=== PATIENT | female | born 1945 | race Caucasian/White ===

== ENCOUNTER → 2018-02-18 | Outpatient (CLI) | payer MEDICARE, BC ==
[2018-02-18 10:44] VITALS: BP 121/57; PULSE 74; RESP 12; TEMP 97; BMI 24.1
--- NOTE | 2018-02-18 11:24 | P.GSHP ---
History of Present Illness H&P Date: 02/18/18 Chief Complaint: right mastectomy 2002 The patient is a 73 year old white female status post left breast mastectomy. She initially underwent chemotherapy, she then had a mastectomy, and then she had 32 radiation therapy treatments. She was treated by DR. Dean, the tumor size was > 5 CM, +2nodes, no metastasis. She is unsure if it was hormone receptor positive. Her surgery was at [facility] in [place]. At this time the patient does not have any complaints related to her left breast. She has no evidence of any recurrence in her right chest wall. Family History: 1. sister: non-hodgkins lymphoma Hormonal history: menarche: 11 : 4, 4 children, breast fed: no, first born at 21 mneopause: 49 BCP:< 1 year, developed a swelling on her leg Hormones: none past Surgical History: 1. right mastectomy 2. gallbladder Medical Hsitory: 1. asthma Social History: smoke: 1 year 2 cigarretes/day/stopped in alcohol: none drugs: none - Constitutional Comment: BMI: 24.1 Constitutional: Reports sweats - EENT Comment: cataract surgery bilateral Eyes: denies blurred vision, denies pain Ears: bilateral: decreased hearing, tinnitus Ears, nose, mouth and throat: Denies headache, Denies sore throat - Breasts Breasts: bilateral: as per HPI - Cardiovascular Cardiovascular: Denies chest pain, Denies shortness of breath - Respiratory Comment: asthma Respiratory: Denies cough, Denies 7 - Gastrointestinal Gastrointestinal: Denies abdominal pain, Denies diarrhea, Denies nausea, Denies vomiting - Genitourinary (Female) Genitourinary: Denies dysuria, Denies hematuria - Menstruation Menstruation: Reports postmenopausal - Musculoskeletal Comment: arthritis/ muscle aches - Integumentary Integumentary: Reports pruritus, Denies rash - Neurological Neurological: Denies numbness, Denies weakness - Psychiatric Psychiatric: Denies anxiety, Denies depression - Endocrine Endocrine: Denies fatigue, Denies weight change - Hematologic/Lymphatic Comment: none - Allergic/Immunologic Allergic/Immunologic: Reports seasonal allergies Past Medical History History of Any Multi-Drug Resistant Organisms: None Reported Smoking Status: Never smoker Medications and Allergies Home Medications Medication Instructions Recorded Confirmed Type Fluticasone Propionate [Flovent 1 puff INHALATION 10/19/18 History Hfa 44 mcg] Montelukast Sodium [Singulair] 10 mg PO HS 02/18/18 02/18/18 History Surgical - Exam Vital Signs Temp Pulse Resp BP 97 F L 74 12 121/57 02/18/18 10:40 02/18/18 10:40 02/18/18 10:40 02/18/18 10:40 BMI 24.1 - General well developed, well nourished, no distress - Eyes normal ocular movement - ENT normal pinna, normal nares, no congestion - Neck no masses, trachea midline - Respiratory normal respiratory effort, clear to auscultation - Cardiovascular Rhythm: regular Heart Sounds: normal: S1, S2 - Abdomen Abdomen: soft - Integumentary no rash - Neurologic no disoriented, no combative - Musculoskeletal normal gait, normal posture - Psychiatric oriented to time, oriented to person, oriented to place, speech is normal, memory intact breast exam: Right chest wall: Multiple positional exam no evidence of recurrent disease Right axilla: No adenopathy of concern Left breast: Multi-positional exam no dominant masses or nodules of concern Left axilla: No adenopathy of concern Assessment and Plan Assessment: Impression: 1. Status post right breast mastectomy 2002, no evidence of recurrent breast cancer 2. Asthma 3. Fibrocystic changes left breast Plan: 1. Left breast mammogram 2. Depending on results of left breast mammogram follow-up in 1 year line 3. Medical management of medical problems CC: Dr. Astorga
== END | disposition home or self-care (01) ==
LOC: WWCWWP 10:18
PROVIDERS: ATTEND Surgery
DX: Z53.9 Procedure and treatment not carried out, unspecified reason (principal)

== ENCOUNTER → 2018-03-04 | Outpatient (CLI) | payer MEDICARE, BC ==
--- NOTE | 2018-03-04 13:53 | MM ---
Reason for exam: additional evaluation requested from prior study. History: Patient is postmenopausal and has history of breast cancer at age 58. Mastectomy of the right breast, 2002. Chemotherapy, 2002. Radiation therapy of the right breast, 2002. Took antineoplastic for 5 years beginning at age 58. Physical Findings: Nurse did not find any significant physical abnormalities on exam. MG 3D Diag Mammo W/Cad LT CC and MLO view(s) were taken of the left breast. The breast tissue is heterogeneously dense. This may lower the sensitivity of mammography. No significant new findings when compared with previous films. These results were verbally communicated with the patient and result sheet given to the patient on 03/04/18. ASSESSMENT: Benign, BI-RAD 2 RECOMMENDATION: Follow-up diagnostic mammogram of the left breast in 1 year.
== END | disposition home or self-care (01) ==
LOC: RADMAMWWP 12:46
PROVIDERS: ATTEND Surgery
DX: R92.8 Other abnormal and inconclusive findings on diagnostic imaging of breast (principal)
CPT/HCPCS: 77065; G0279; 77061

== ENCOUNTER → 2018-03-17 | Outpatient (CLI) | payer MEDICARE, BC ==
[2018-03-17 14:29] VITALS: BP 131/61; PULSE 78; RESP 18; TEMP 97.8; BMI 22.6
--- NOTE | 2018-03-17 14:56 | P.GSHP ---
History of Present Illness H&P Date: 03/17/18 Chief Complaint: right breast cancer Luisa is a 73 year old white female who was diagnosed with right breast cancer in 2002. She had neoadjuvant chemotherapy followed by a mastectomy and then radiation therapy. She believes that she also had antihormonal therapy. She has not had any problems in her left breast. She had a mammogram performed which was benign BIRADS 2. The patient at this time denies any masses or nodules in her breast. She has no nipple discharge or skin changes for which she is concerned. Family History: 1. mother: ? colon cancer 2. father: lung (smoker) 3. sister: non-hodgkins lymphoma Hormonal Hisotry: menarche: 11 : 4, 4 children, breast fed: no, first at age 23 menopause: 49 BCP: 3 weeks and developed a DVT hormones: none Past surgical history: 1. Right mastectomy 2. Cholecystectomy Medical history: 1. Asthma Social history: Smoke: Negative Alcohol: Negative Drugs: Negative - Constitutional Comment: BMI 22.6 Constitutional: Denies chills, Denies fever - EENT Eyes: denies blurred vision, denies pain Ears: bilateral: decreased hearing, tinnitus Ears, nose, mouth and throat: Denies headache, Denies sore throat - Breasts Breasts: bilateral: as per HPI - Cardiovascular Cardiovascular: Denies chest pain, Denies shortness of breath - Respiratory Comment: asthma - Gastrointestinal Gastrointestinal: Denies abdominal pain, Denies diarrhea, Denies nausea, Denies vomiting - Genitourinary (Female) Genitourinary: Denies dysuria, Denies hematuria - Menstruation Menstruation: Reports postmenopausal - Musculoskeletal Comment: arthritis - Integumentary Integumentary: Denies pruritus, Denies rash - Neurological Neurological: Denies numbness, Denies weakness - Psychiatric Psychiatric: Denies anxiety, Denies depression - Endocrine Endocrine: Denies fatigue, Denies weight change - Hematologic/Lymphatic Comment: none - Allergic/Immunologic Comment: mold Allergic/Immunologic: Reports seasonal allergies Past Medical History Past Medical History: Asthma History of Any Multi-Drug Resistant Organisms: None Reported Past Surgical History: Cholecystectomy Past Anesthesia/Blood Transfusion Reactions: No Reported Reaction Past Psychological History: No Psychological Hx Reported Smoking Status: Never smoker Past Alcohol Use History: None Reported - Past Family History Mother Additional Family Medical History / Comment(s): bowel obstruction Father Family Medical History: Cancer Additional Family Medical History / Comment(s): lung cancer Medications and Allergies Home Medications Medication Instructions Recorded Confirmed Type Fluticasone Propionate [Flovent 1 puff INHALATION Q12HR 02/18/18 03/17/18 History Hfa 44 mcg] Montelukast Sodium [Singulair] 10 mg PO HS 02/18/18 03/17/18 History Allergies Allergy/AdvReac Type Severity Reaction Status Date / Time povidone-iodine Allergy Rash/Hives Verified 03/17/18 14:31 [From Betadine] soap [From Betadine] Allergy Rash/Hives Verified 03/17/18 14:31 Surgical - Exam Vital Signs Temp Pulse Resp BP Pulse Ox 97.8 F 78 18 131/61 97 03/17/18 14:19 03/17/18 14:19 03/17/18 14:19 03/17/18 14:19 03/17/18 14:19 BMI 22.6 - General well developed, well nourished, no distress - Eyes normal ocular movement, no icteric - ENT no hearing loss, no congestion - Neck no masses, trachea midline - Respiratory normal respiratory effort, clear to auscultation - Cardiovascular Rhythm: regular Heart Sounds: normal: S1, S2 - Abdomen Abdomen: soft, non tender, no guarding, no rigid, no rebound - Integumentary normal turger - Neurologic no disoriented, no combative - Musculoskeletal normal gait - Psychiatric oriented to time, oriented to person, oriented to place, speech is normal, memory intact breast exam: right breast: Status post mastectomy, no recurrence and chest wall Right axilla: No adenopathy of concern Left breast: Multi-positional exam increased fullness in the upper outer quadrant area without a discrete mass Left axilla: No adenopathy of concern Results Mammogram from results reviewed Assessment and Plan Assessment: Impression: 1. Patient status post right breast mastectomy 2002 2. Left breast fibrocystic changes some increased fullness in the upper outer quadrant 3. No evidence of recurrent cancer Plan: 1. FNA of area of increased fullness in the left breast and upper outer quadrant 2. If results of FNA are non-worrisome repeat physician exam in 1 year with repeat left breast mammogram at that time CC: Dr. Pope
--- NOTE | 2018-03-17 15:02 | P.OP ---
Date of Procedure: 03/17/18 Preoperative Diagnosis: fullness left bresat UOQ Postoperative Diagnosis: dense tissue UOQ left breast Anesthesia: none Pathology: other (FNA specimen) Condition: stable Disposition: same day Indications for Procedure: fullness UOQ left breast Description of Procedure: The area of concern was prepped using alcohol. A 21 gauge needle on a 5 cc syringe was used to obtain the specimen. Negative suction is applied to the syringe and the needle was inserted several times into the area of concern. The specimen is handed off. Specimen is prepared and sent to pathology. The patient tolerated the procedure in stable condition.
== END | disposition home or self-care (01) ==
LOC: WWCWWP 14:14
PROVIDERS: ATTEND Surgery
DX: N64.9 Disorder of breast, unspecified (principal)
CPT/HCPCS: 88173

== ENCOUNTER → 2019-03-23 | Outpatient (CLI) | payer MEDICARE, BC ==
[2019-03-23 10:18] VITALS: BP 116/75; PULSE 70; RESP 18; TEMP 98.2; BMI 22.2
--- NOTE | 2019-03-23 10:32 | P.PN ---
Subjective Progress Note Date: 03/23/19 Principal diagnosis: personal history of T4 right breast cancer Luisa is a 73 year old white female who was diagnosed with right breast cancer in 2002. She had neoadjuvant chemotherapy followed by a mastectomy and then radiation therapy. She believes that she also had antihormonal therapy. She has not had any problems in her left breast. She had a mammogram performed 03-04-18 which was benign BIRADS 2. The patient at this time denies any masses or nodules in her breast. She has no nipple discharge or skin changes for which she is concerned. She is due for a left breast mammogram at tis time. Family History: 1. mother: ? colon cancer 2. father: lung (smoker) 3. sister: non-hodgkins lymphoma 4. patient: right breast cancer Hormonal Hisotry: menarche: 11 : 4, 4 children, breast fed: no, first at age 23 menopause: 49 BCP: 3 weeks and developed a DVT hormones: none Past surgical history: 1. Right mastectomy 2. Cholecystectomy Medical history: 1. Asthma Social history: Smoke: Negative Alcohol: Negative Drugs: Negative - Constitutional Comment: BMI 22.6 Constitutional: Denies chills, Denies fever - EENT Eyes: denies blurred vision, denies pain Ears: bilateral: decreased hearing, tinnitus Ears, nose, mouth and throat: Denies headache, Denies sore throat - Breasts Breasts: bilateral: as per HPI - Cardiovascular Cardiovascular: Denies chest pain, Denies shortness of breath - Respiratory Comment: asthma - Gastrointestinal Gastrointestinal: Denies abdominal pain, Denies diarrhea, Denies nausea, Denies vomiting - Genitourinary (Female) Genitourinary: Denies dysuria, Denies hematuria - Menstruation Menstruation: Reports postmenopausal - Musculoskeletal Comment: arthritis - Integumentary Integumentary: Denies pruritus, Denies rash - Neurological Neurological: Denies numbness, Denies weakness - Psychiatric Psychiatric: Denies anxiety, Denies depression - Endocrine Endocrine: Denies fatigue, Denies weight change - Hematologic/Lymphatic Comment: none - Allergic/Immunologic Comment: mold Allergic/Immunologic: Reports seasonal allergies Past Medical History Past Medical History: Asthma History of Any Multi-Drug Resistant Organisms: None Reported Past Surgical History: Cholecystectomy Past Anesthesia/Blood Transfusion Reactions: No Reported Reaction Past Psychological History: No Psychological Hx Reported Smoking Status: Never smoker Past Alcohol Use History: None Reported - Past Family History Mother Additional Family Medical History / Comment(s): bowel obstruction Father Family Medical History: Cancer Additional Family Medical History / Comment(s): lung cancer Objective - Vital Signs Vital signs: Vital Signs Temp 98.2 F 03/23/19 10:14 Pulse 70 03/23/19 10:14 Resp 18 03/23/19 10:14 BP 116/75 03/23/19 10:14 Pulse Ox 98 03/23/19 10:14 - Exam BMI 22.3 - Constitutional General appearance: Present: average body habitus - EENT Eyes: Present: EOMI ENT: Present: hearing grossly normal - Neck Neck: Present: normal ROM - Respiratory Respiratory: bilateral: CTA - Cardiovascular Rhythm: regular Heart sounds: normal: S1, S2 - Gastrointestinal Gastrointestinal Comment(s): no guarding or rebound, normal bowel sounds, no organomegaly General gastrointestinal: Present: soft - Integumentary Integumentary: Present: normal turgor - Musculoskeletal Musculoskeletal: Present: gait normal - Psychiatric Psychiatric: Present: A&O x's 3, appropriate affect, intact judgment & insight - Additional findings Additional findings: breast exam: right chest wall: Incision clean and dry, no evidence of any recurrent cancer Right axilla: No adenopathy of concern Left breast: Multi-positional exam fibrocystic changes, no dominant masses or nodules of concern Left axilla: No adenopathy of concern Assessment and Plan Assessment: impression: 1. personal history of right breast cancer, 2002; radical mastectomy 2. Neoadjuvant chemotherapy 3. Patient had hormonal therapy was not taking this any longer 4. Patient status post radiation therapy/ 32 treatments after the surgery 5. benign left breast mammogram 6. Plan: 1. Repeat left breast mammogram in 1 year 2. Follow-up here in 1 year 3. Medical management of asthma CC: Dr. Zana Fowler
--- NOTE | 2019-03-23 12:02 | MM ---
Reason for exam: additional evaluation requested from prior study. Last mammogram was performed 1 year and 1 month ago. History: Patient is postmenopausal and has history of breast cancer at age 58. Mastectomy of the right breast, 2002. Chemotherapy, 2002. Radiation therapy of the right breast, 2002. Took antineoplastic for 5 years beginning at age 58. Physical Findings: Nurse did not find any significant physical abnormalities on exam. MG 3D Diag Mammo W/Cad LT CC, MLO, XCCL, LM, and spot compression XCCM view(s) were taken of the left breast. Prior study comparison: March 04, 2018, left breast MG 3d diag mammo w/cad LT. The breast tissue is extremely dense which could obscure a lesion on mammography. There is no discrete abnormality. No significant new findings when compared with previous films. These results were verbally communicated with the patient and result sheet given to the patient on 03/23/19. ASSESSMENT: Negative, BI-RAD 1 RECOMMENDATION: Follow-up diagnostic mammogram of the left breast in 1 year.
== END | disposition home or self-care (01) ==
LOC: WWCWWP 09:39
PROVIDERS: ATTEND Surgery
DX: Z08 Encounter for follow-up examination after completed treatment for malignant neoplasm (principal); Z85.3 Personal history of malignant neoplasm of breast
CPT/HCPCS: 77065; G0279; 77061

== ENCOUNTER → 2020-08-21 | Outpatient (CLI) | payer MEDICARE, BC ==
--- NOTE | 2020-08-21 11:29 | MM ---
Reason for exam: additional evaluation requested from prior study. Last mammogram was performed 1 year and 5 months ago. History: Patient is postmenopausal and has history of breast cancer at age 58. Mastectomy of the right breast, 2002. Chemotherapy, 2002. Radiation therapy of the right breast, 2002. Took antineoplastic for 5 years beginning at age 58. Physical Findings: Nurse did not find any significant physical abnormalities on exam. MG 3D Diag Mammo W/Cad LT CC and MLO view(s) were taken of the left breast. Prior study comparison: March 23, 2019, left breast MG 3d diag mammo w/cad LT. March 04, 2018, left breast MG 3d diag mammo w/cad LT. The breast tissue is heterogeneously dense. This may lower the sensitivity of mammography. Stable vascular calcifications. There is no discrete abnormality. No significant new findings when compared with previous films. These results were verbally communicated with the patient and result sheet given to the patient on 08/21/20. ASSESSMENT: Benign, BI-RAD 2 RECOMMENDATION: Follow-up diagnostic mammogram of the left breast in 1 year.
== END | disposition home or self-care (01) ==
LOC: RADMAMWWP 10:46
PROVIDERS: ATTEND Surgery
DX: Z78.0 Asymptomatic menopausal state (principal); Z85.3 Personal history of malignant neoplasm of breast
CPT/HCPCS: 77065; G0279; 77061

== ENCOUNTER → 2020-08-29 | Outpatient (CLI) | payer MEDICARE, BC ==
[2020-08-29 11:09] VITALS: BP 134/71; PULSE 72; RESP 18; TEMP 97.9
--- NOTE | 2020-08-29 11:30 | P.PN ---
Subjective Progress Note Date: 08/29/20 Principal diagnosis: right breast cancer 2002, surgery done [facility] Luisa is a 75 year old white female who was diagnosed with right breast cancer in 2002. She had neoadjuvant chemotherapy followed by a mastectomy and then radiation therapy. She believes that she also had antihormonal therapy. She has not had any problems in her left breast. She is not complaining of any lumps masses nodules or areas of concern. She is not complaining of any nipple discharge of concern. She had a mammogram performed on 08-21-20 which was benign BIRADS 2. The patient at this time denies any masses or nodules in her breast. She has no nipple discharge or skin changes for which she is concerned. Family History: 1. mother: ? colon cancer 2. father: lung (smoker) 3. sister: non-hodgkins lymphoma 4. patient: right breast cancer Hormonal Hisotry: menarche: 11 : 4, 4 children, breast fed: no, first at age 23 menopause: 49 BCP: 3 weeks and developed a DVT hormones: none Past surgical history: 1. Right mastectomy 2. Cholecystectomy Medical history: 1. Asthma Social history: Smoke: Negative Alcohol: Negative Drugs: Negative Review of systems: HEENT: tinnitus bilateral Lungs: Negative heart: Negative GI: Negative : Negative Hematologic: none Psychologic: Negative Neurologic: Negative Objective - Vital Signs Vital signs: Vital Signs Temp 97.9 F 08/29/20 11:04 Pulse 72 08/29/20 11:04 Resp 18 08/29/20 11:04 BP 134/71 08/29/20 11:04 Pulse Ox 97 08/29/20 11:04 Intake & Output 08/28/20 08/29/20 08/29/20 18:59 06:59 18:59 Weight 58.967 kg - Constitutional General appearance: Present: average body habitus, cooperative - EENT Eyes: Present: EOMI ENT: Present: hearing grossly normal - Neck Neck: Present: normal ROM - Respiratory Respiratory: bilateral: CTA - Cardiovascular Rhythm: regular Heart sounds: normal: S1, S2 - Integumentary Integumentary: Present: normal turgor - Musculoskeletal Musculoskeletal: Present: gait normal - Psychiatric Psychiatric: Present: A&O x's 3, appropriate affect, intact judgment & insight - Additional findings Additional findings: breast exam: BRA: 36A inspection: right chest wall no evidence of recurrence, left breast grade 3 ptosis palpation: right chest wall: No evidence of recurrent disease Right axilla: No adenopathy of concern Left breast: Multiple positional exam no dominant masses or nodules of concern Left axilla: No adenopathy of concern Assessment and Plan Assessment: Impression: 1. No evidence of recurrent right breast cancer/diagnosed in 2003 question stage 2. Fibrocystic changes left breast no dominant masses or nodules of concern 3. Recent left breast mammogram BIRADS 2 4. Asthma Plan: 1. Repeat left breast mammogram in 1 year with physician exam at that time
== END ==
LOC: WWCWWP 10:20
PROVIDERS: ATTEND Surgery
DX: N60.12 Diffuse cystic mastopathy of left breast (principal); J45.909 Unspecified asthma, uncomplicated; Z80.3 Family history of malignant neoplasm of breast; Z90.11 Acquired absence of right breast and nipple

== ENCOUNTER → 2021-08-25 | Outpatient (CLI) | payer MEDICARE, BC ==
--- NOTE | 2021-08-25 14:16 | MM ---
Reason for exam: screening (asymptomatic). Last mammogram was performed 1 year ago. History: Patient is postmenopausal and has history of breast cancer at age 58. Mastectomy of the right breast, 2002. Chemotherapy, 2002. Radiation therapy of the right breast, 2002. Took antineoplastic for 5 years beginning at age 58. Physical Findings: A clinical breast exam by your physician is recommended on an annual basis and results should be correlated with mammographic findings. MG 3D Diag Mammo W/Cad LT CC, MLO, and XCCL view(s) were taken of the left breast. Prior study comparison: August 21, 2020, left breast MG 3d diag mammo w/cad LT. March 23, 2019, left breast MG 3d diag mammo w/cad LT. March 04, 2018, left breast MG 3d diag mammo w/cad LT. No significant new findings when compared with previous films. Results were given to the patient verbally at the time of the exam. ASSESSMENT: Benign, BI-RAD 2 RECOMMENDATION: Routine screening mammogram of the left breast in 1 year.
== END | disposition home or self-care (01) ==
LOC: RADMAMWWP 12:08
PROVIDERS: ATTEND Surgery
DX: R92.8 Other abnormal and inconclusive findings on diagnostic imaging of breast (principal); Z85.3 Personal history of malignant neoplasm of breast; Z78.0 Asymptomatic menopausal state; Z92.3 Personal history of irradiation; Z90.11 Acquired absence of right breast and nipple
CPT/HCPCS: 77065; G0279; 77061

== ENCOUNTER → 2021-08-28 | Outpatient (CLI) | payer MEDICARE, BC ==
[2021-08-28 11:48] VITALS: BP 127/64; PULSE 98; RESP 17; TEMP 97.5
--- NOTE | 2021-08-28 12:32 | P.PN ---
Subjective Progress Note Date: 08/28/21 Principal diagnosis: right breast cancer 2002 right breast cancer 2002, surgery done [facility] Luisa is a 76 year old white female who was diagnosed with right breast cancer in 2002. She had neoadjuvant chemotherapy followed by a mastectomy and then radiation therapy. She believes that she also had antihormonal therapy. She has not had any problems in her left breast. She is not complaining of any lumps masses nodules or areas of concern. She is not complaining of any nipple discharge of concern. She had a mammogram performed on 08-25-21 which was benign BIRADS 2. The patient at this time denies any masses or nodules in her breast. She has no nipple discharge or skin changes for which she is concerned. Family History: 1. mother: ? colon cancer 2. father: lung (smoker) 3. sister: non-hodgkins lymphoma 4. patient: right breast cancer Hormonal Hisotry: menarche: 11 : 4, 4 children, breast fed: no, first at age 23 menopause: 49 BCP: 3 weeks and developed a DVT hormones: none Past surgical history: 1. Right mastectomy 2. Cholecystectomy Medical history: 1. Asthma Social history: Smoke: Negative Alcohol: Negative Drugs: Negative Review of systems: HEENT: tinnitus bilateral Lungs: Negative heart: Negative GI: Negative : Negative Hematologic: none Psychologic: Negative Neurologic: Negative Objective - Vital Signs Vital signs: Vital Signs Temp 97.5 F L 08/28/21 11:45 Pulse 98 08/28/21 11:45 Resp 17 08/28/21 11:45 BP 127/64 08/28/21 11:45 Pulse Ox 99 08/28/21 11:45 Intake & Output 08/27/21 08/28/21 08/28/21 18:59 06:59 18:59 Weight 56.245 kg - Exam BMI: 20 - Constitutional General appearance: Present: cooperative - EENT Eyes: Present: EOMI ENT: Present: hearing grossly normal - Neck Neck: Present: normal ROM - Respiratory Respiratory: bilateral: CTA - Cardiovascular Rhythm: regular Heart sounds: normal: S1, S2 - Gastrointestinal General gastrointestinal: Present: soft - Integumentary Integumentary: Present: normal turgor - Musculoskeletal Musculoskeletal: Present: gait normal - Psychiatric Psychiatric: Present: A&O x's 3, appropriate affect, intact judgment & insight - Additional findings Additional findings: Breast Exam: BRA: 36B inspection: Right mastectomy, left breast grade 3 ptosis Palpation: Right chest wall: No evidence of recurrent disease Right axilla: No adenopathy of concern Left breast: Multiple positional exam no dominant masses or nodules of concern Left axilla: No adenopathy of concern Assessment and Plan Assessment: Impression: No evident recurrent right breast cancer Left breast no lesions warranting biopsy recent left breast mammogram benign BIRADS 2 done on [id number] Plan: Repeat left breast mammogram in 1 year physician exam at that time
== END ==
LOC: WWCWWP 11:26
PROVIDERS: ATTEND Surgery
DX: Z08 Encounter for follow-up examination after completed treatment for malignant neoplasm (principal); Z85.3 Personal history of malignant neoplasm of breast; J45.909 Unspecified asthma, uncomplicated; Z90.11 Acquired absence of right breast and nipple; Z88.8 Allergy status to other drugs, medicaments and biological substances; Z91.041 Radiographic dye allergy status

== ENCOUNTER → 2022-09-15 | Outpatient (CLI) | payer MEDICARE, BC ==
--- NOTE | 2022-09-16 08:59 | MM ---
Reason for Exam: Screening (asymptomatic). Last mammogram was performed 1 year(s) and 1 month(s) ago. Patient History: Menarche at age 11. First Full-Term at age 21. Postmenopausal. Breast cancer, right, age 58. 2002, Mastectomy on the Right side. 2002, Chemotherapy. 2002, Radiation Therapy on the right side. Prior Study Comparison: 03/04/2018 Left Diagnostic Mammogram, [facility]. 03/23/2019 Left Diagnostic Mammogram, [facility]. 08/21/2020 Left Diagnostic Mammogram, [facility]. 08/25/2021 Left Diagnostic Mammogram, [facility]. Tissue Density: Left: The breast tissue is heterogeneously dense. This may lower the sensitivity of mammography. Findings: Analyzed By CAD. Significantly limited examination due to patient position. Asymmetry demonstrated within the central left breast at middle depth only on the CC view. Benign vascular calcifications are noted. No suspicious group of microcalcifications within left breast. Overall Assessment: Incomplete: need additional imaging evaluation, BI-RAD 0 Management: Diagnostic Mammogram of the left breast. A clinical breast exam by your physician is recommended on an annual basis and results should be correlated with mammographic findings. [facility] will attempt to contact patient to return for supplemental views and ultrasound if indicated. Electronically signed and approved by: Xander Hewitt D.O.
== END | disposition home or self-care (01) ==
LOC: RADMAMWWP 12:02
PROVIDERS: ATTEND Surgery
DX: Z12.31 Encounter for screening mammogram for malignant neoplasm of breast (principal); Z78.0 Asymptomatic menopausal state
CPT/HCPCS: 77067

== ENCOUNTER → 2022-09-17 | Outpatient (CLI) | payer MEDICARE, BC ==
--- NOTE | 2022-09-17 10:39 | MM ---
Reason for Exam: Clinical finding. Last screening mammogram was performed less than 1 month ago. Patient History: Menarche at age 11. First Full-Term at age 21. Postmenopausal. Breast cancer, right, age 58. 2002, Mastectomy on the Right side. 2002, Chemotherapy. 2002, Radiation Therapy on the right side. Prior Study Comparison: 08/21/2020 Left Diagnostic Mammogram, [facility]. 08/25/2021 Left Diagnostic Mammogram, [facility]. 09/15/2022 Left MG 3D scr merly unilateral w/cad., [facility]. Tissue Density: Left: The breast tissue is heterogeneously dense. This may lower the sensitivity of mammography. Findings: Analyzed By CAD. Area of central asymmetric density on the CC view, middle depth, incompletely disperses on spot 3-D views. Again, no clear correlate on the MLO/true lateral view. Further ultrasound evaluation recommended. Overall Assessment: Incomplete: need additional imaging evaluation, BI-RAD 0 Management: Diagnostic Breast Ultrasound of the left breast. Electronically signed and approved by: Tatiana Irizarry M.D. Radiologist
--- NOTE | 2022-09-17 11:40 | USB ---
Reason for Exam: Additional evaluation requested from abnormal screening. Patient History: Menarche at age 11. First Full-Term at age 21. Postmenopausal. Breast cancer, right, age 58. 2002, Mastectomy on the Right side. 2002, Chemotherapy. 2002, Radiation Therapy on the right side. Prior Study Comparison: 08/21/2020 Left Diagnostic Mammogram, [facility]. 08/25/2021 Left Diagnostic Mammogram, [facility]. 09/15/2022 Left MG 3D scr merly unilateral w/cad., [facility]. Findings: The upper section of the breast of the left breast, the lower section of the breast of the left breast, the axilla of the left breast and the retroareolar of the left breast were scanned. Targeted ultrasound left breast 11:00 to 1:00 as well as the 5:00 to 7:00 position. Dense tissues are present throughout. Some subareolar duct ectasia is noted. At the 1:00 position, 4 cm from the nipple, there is a 6 x 4 x 3 mm benign cyst. Six-month follow-up recommended to reassess the mammographic finding. Overall Assessment: Probably benign, BI-RAD 3 Management: Diagnostic Mammogram of the left breast in 6 months. A clinical breast exam by your physician is recommended on an annual basis and results should be correlated with mammographic findings. This exam should not preclude additional follow-up of suspicious palpable abnormalities. Results were given to the patient verbally at the time of exam. Electronically signed and approved by: Tatiana Irizarry M.D. Radiologist
== END | disposition home or self-care (01) ==
LOC: RADMAMWWP 10:04
PROVIDERS: ATTEND Surgery
DX: C50.911 Malignant neoplasm of unspecified site of right female breast (principal); N60.02 Solitary cyst of left breast; N60.42 Mammary duct ectasia of left breast; Z78.0 Asymptomatic menopausal state; Z90.11 Acquired absence of right breast and nipple
CPT/HCPCS: 77065; 76642; G0279; 77061

== ENCOUNTER → 2022-09-25 | Outpatient (CLI) | payer MEDICARE, BC ==
[2022-09-25 13:22] VITALS: BP 136/71; PULSE 82; RESP 18; TEMP 98.1
--- NOTE | 2022-09-25 13:36 | P.PN ---
Subjective Progress Note Date: 09/25/22 Principal diagnosis: right breast cancer 2002 right breast cancer 2002 right breast cancer 2002, surgery done [facility] Luisa is a 77 year old white female who was diagnosed with right breast cancer in 2002. She had neoadjuvant chemotherapy followed by a mastectomy and then radiation therapy. She believes that she also had antihormonal therapy. She has not had any problems in her left breast. She is not complaining of any lumps masses nodules or areas of concern. She is not complaining of any nipple discharge of concern. She had a mammogram performed on 09-15-22 which led to a left breast diagnostic mammogram and ultrasound being performed on . The conclusion was BIRADS 3 repeat left breast mammogram in 6 months. The patient at this time denies any masses or nodules in her breast. She has no nipple discharge or skin changes for which she is concerned. The patient has lost approximately 20 pounds over the last 2 years. Family History: 1. mother: ? colon cancer 2. father: lung (smoker) 3. sister: non-hodgkins lymphoma 4. patient: right breast cancer Hormonal Hisotry: menarche: 11 : 4, 4 children, breast fed: no, first at age 23 menopause: 49 BCP: 3 weeks and developed a DVT hormones: none Past surgical history: 1. Right mastectomy 2. Cholecystectomy Medical history: 1. Asthma Social history: Smoke: Negative Alcohol: Negative Drugs: Negative Review of systems: HEENT: tinnitus bilateral Lungs: Negative heart: Negative GI: Negative : Negative Hematologic: none Psychologic: Negative Neurologic: Negative Objective - Vital Signs Vital signs: Vital Signs Temp 98.1 F 09/25/22 13:18 Pulse 82 09/25/22 13:18 Resp 18 09/25/22 13:18 BP 136/71 09/25/22 13:18 Pulse Ox 99 09/25/22 13:18 FiO2 Intake & Output 09/24/22 09/25/22 09/25/22 18:59 06:59 18:59 Weight 54.431 kg - Constitutional General appearance: Present: cooperative - EENT Eyes: Present: EOMI ENT: Present: hearing grossly normal - Neck Neck: Present: normal ROM - Respiratory Respiratory: bilateral: CTA - Cardiovascular Rhythm: regular Heart sounds: normal: S1, S2 - Integumentary Integumentary: Present: normal turgor - Musculoskeletal Musculoskeletal: Present: gait normal - Psychiatric Psychiatric: Present: A&O x's 3, appropriate affect, intact judgment & insight - Additional findings Additional findings: Breast Exam: BRA: 36B inspection: Right mastectomy, left breast grade 3 ptosis Palpation: Right chest wall: No evidence of recurrent disease Right axilla: No adenopathy of concern Left breast: Multiple positional exam no dominant masses or nodules of concern Left axilla: No adenopathy of concern Assessment and Plan Assessment: Impression: status post right breast mastectomy 2002 abnormal left breast mammogram Plan: repeat left breast mammogram in 6 months with appointment at that time Prescription given for a new right breast prosthesis and surgical bra
== END ==
LOC: WWCWWP 13:10
PROVIDERS: ATTEND Surgery
DX: C50.911 Malignant neoplasm of unspecified site of right female breast (principal); J45.909 Unspecified asthma, uncomplicated; Z80.3 Family history of malignant neoplasm of breast; Z90.11 Acquired absence of right breast and nipple; Z90.49 Acquired absence of other specified parts of digestive tract; R92.8 Other abnormal and inconclusive findings on diagnostic imaging of breast; Z88.6 Allergy status to analgesic agent

== ENCOUNTER → 2023-03-22 | Outpatient (CLI) | payer MEDICARE, BC ==
--- NOTE | 2023-03-22 11:22 | MM ---
Reason for Exam: Follow-up at short interval from prior study. Last screening mammogram was performed 6 month(s) ago. Patient History: Menarche at age 11. First Full-Term at age 21. Postmenopausal. Breast cancer, right, age 58. 2002, Mastectomy on the Right side. 2002, Chemotherapy. 2002, Radiation Therapy on the right side. Prior Study Comparison: 08/25/2021 Left Diagnostic Mammogram, [facility]. 09/15/2022 Left MG 3D scr merly unilateral w/cad., [facility]. 09/17/2022 Left MG 3D work up w/cad LT, [facility]. Tissue Density: Left: The breast tissue is heterogeneously dense. This may lower the sensitivity of mammography. Findings: Analyzed By CAD. No distinct mass or distortion. No suspicious calcifications. Overall Assessment: Negative, BI-RAD 1 Management: Diagnostic Mammogram of the left breast in 1 year. . Results were given to the patient verbally at the time of exam. Patient should continue monthly self-breast exams. A clinical breast exam by your physician is recommended on an annual basis. This exam should not preclude additional follow-up of suspicious palpable abnormalities. Note on Ailyn scores and lifetime risk: 1. A Ailyn score greater than 3% is considered moderate risk. If this is the case, consider specialist referral to assess eligibility for a risk reducing agent. 2. If overall lifetime risk for the development of breast cancer is 20% or higher, the patient may qualify for future screening with alternating mammogram and breast MRI. Electronically signed and approved by: Baljinder Winkler M.D. Radiologis
== END | disposition home or self-care (01) ==
LOC: RADMAMWWP 10:34
PROVIDERS: ATTEND Surgery
DX: R92.332 Mammographic heterogeneous density, left breast (principal); Z85.3 Personal history of malignant neoplasm of breast; Z78.0 Asymptomatic menopausal state
CPT/HCPCS: 77065; G0279; 77061

== ENCOUNTER → 2023-04-01 | Outpatient (CLI) | payer MEDICARE, BC ==
--- NOTE | 2023-04-01 11:04 | P.PN ---
Subjective Progress Note Date: 04/01/23 right breast cancer 2002, surgery done [facility] Luisa is a 78 year old white female who was diagnosed with right breast cancer in 2002. She had neoadjuvant chemotherapy followed by a mastectomy and then radiation therapy. She believes that she also had antihormonal therapy. She has not had any problems in her left breast. She is not complaining of any lumps masses nodules or areas of concern. She is not complaining of any nipple discharge of concern. She had a mammogram performed on 09-15-22 which led to a left breast [place] [id number]. The conclusion was BIRADS 3 repeat left breast mammogram in 6 months. The patient at this time denies any masses or nodules in her breast. She has no nipple discharge or skin changes for which she is concerned. Patient had a repeat left breast mammogram on [id number] this was BIRADS 1 The patient has lost approximately 20 pounds over the last 2 years. Family History: 1. mother: ? colon cancer 2. father: lung (smoker) 3. sister: non-hodgkins lymphoma 4. patient: right breast cancer Hormonal Hisotry: menarche: 11 : 4, 4 children, breast fed: no, first at age 23 menopause: 49 BCP: 3 weeks and developed a DVT hormones: none Past surgical history: 1. Right mastectomy 2. Cholecystectomy Medical history: 1. Asthma Social history: Smoke: Negative Alcohol: Negative Drugs: Negative Review of systems: HEENT: tinnitus bilateral Lungs: Negative heart: Negative GI: Negative : Negative Hematologic: none Psychologic: Negative Neurologic: Negative Objective - Constitutional General appearance: Present: cooperative - EENT Eyes: Present: EOMI ENT: Present: hearing grossly normal - Neck Neck: Present: normal ROM - Respiratory Respiratory: bilateral: CTA - Cardiovascular Heart sounds: normal: S1, S2 - Integumentary Integumentary: Present: normal turgor - Musculoskeletal Musculoskeletal: Present: gait normal - Psychiatric Psychiatric: Present: A&O x's 3, appropriate affect, intact judgment & insight - Additional findings Additional findings: Breast Exam: BRA: 36B inspection: Right mastectomy, left breast grade 3 ptosis Palpation: Right chest wall: No evidence of recurrent disease Right axilla: No adenopathy of concern Left breast: Multiple positional exam no dominant masses or nodules of concern Left axilla: No adenopathy of concern Assessment and Plan Assessment: Impression: status post right breast mastectomy 2003 Repeat left breast mammogram [id number] is a 6 [place] [id number] did not reveal any lesions of concern Plan: Left breast mammogram in 1 year with repeat examination at that time
[2023-04-01 11:09] VITALS: BP 101/48; PULSE 80; RESP 17; TEMP 97.5
== END ==
LOC: WWCWWP 10:45
PROVIDERS: ATTEND Surgery
DX: C50.911 Malignant neoplasm of unspecified site of right female breast (principal); J45.909 Unspecified asthma, uncomplicated; Z80.3 Family history of malignant neoplasm of breast; Z90.11 Acquired absence of right breast and nipple; Z90.49 Acquired absence of other specified parts of digestive tract; Z91.041 Radiographic dye allergy status; Z91.018 Allergy to other foods; Z88.8 Allergy status to other drugs, medicaments and biological substances

== ENCOUNTER → 2024-03-23 | Outpatient (CLI) | payer MEDICARE, BC ==
--- NOTE | 2024-03-23 11:28 | MM ---
Reason for Exam: Follow-up at short interval from prior study. Last screening mammogram was performed 12 month(s) ago. Patient History: Menarche at age 11. First Full-Term at age 21. Postmenopausal. Breast cancer, right, age 58. 2002, Mastectomy on the Right side. 2002, Chemotherapy. 2002, Radiation Therapy on the right side. Prior Study Comparison: 09/15/2022 Left MG 3D scr merly unilateral w/cad., [facility]. 09/17/2022 Left MG 3D work up w/cad LT, [facility]. 03/22/2023 Left MG 3D diag mammo w/cad LT, [facility]. Tissue Density: Left: The breasts are heterogeneously dense, which may obscure small masses. Findings: Analyzed By CAD. No evidence for mass or distortion vascular calcifications left breast. Overall Assessment: Benign, BI-RAD 2 Management: Screening Mammogram of both breasts in 1 year. . Results were given to the patient verbally at the time of exam. Patient should continue monthly self-breast exams. A clinical breast exam by your physician is recommended on an annual basis. This exam should not preclude additional follow-up of suspicious palpable abnormalities. Note on Ailyn scores and lifetime risk: 1. A Ailyn score greater than 3% is considered moderate risk. If this is the case, consider specialist referral to assess eligibility for a risk reducing agent. 2. If overall lifetime risk for the development of breast cancer is 20% or higher, the patient may qualify for future screening with alternating mammogram and breast MRI. [facility], , 03/23/2024 11:25 AM. Electronically signed and approved by: Baljinder Winkler M.D. Radiologis
== END | disposition home or self-care (01) ==
LOC: RADMAMWWP 10:48
PROVIDERS: ATTEND Surgery
DX: Z85.3 Personal history of malignant neoplasm of breast (principal); Z78.0 Asymptomatic menopausal state; Z90.11 Acquired absence of right breast and nipple; R92.332 Mammographic heterogeneous density, left breast
CPT/HCPCS: 77065; G0279; 77061

== ENCOUNTER → 2024-04-07 | Outpatient (CLI) | payer MEDICARE, BC ==
[2024-04-07 11:00] VITALS: BP 145/68; PULSE 101; RESP 16; TEMP 97.9
--- NOTE | 2024-04-07 11:18 | P.PN ---
Subjective Progress Note Date: 04/07/24 04-07-24 right breast cancer 2002, surgery done [facility] by Dr. Dean ? stage Luisa is an 79 year old white female who was diagnosed with right breast cancer in 2002. She had neoadjuvant chemotherapy followed by a mastectomy and then radiation therapy. She believes that she also had hormonal therapy. She has not had any problems in her left breast. She is not complaining of any lumps masses nodules or areas of concern. She is not complaining of any nipple discharge of concern. She had a mammogram performed on 09-15-22 which led to a left breast diagnostic mammogram and ultrasound being performed on . The conclusion was BIRADS 3 repeat left breast mammogram in 6 months. The patient at this time denies any masses or nodules in her breast. She has no nipple discharge or skin changes for which she is concerned. Patient had a repeat left breast mammogram on 03-23-24 this was BIRADS 2 The patient has lost approximately 20 pounds over the last 2 years. Family History: 1. mother: ? colon cancer 2. father: lung (smoker) 3. sister: non-hodgkins lymphoma 4. patient: right breast cancer Hormonal Hisotry: menarche: 11 : 4, 4 children, breast fed: no, first at age 23 menopause: 49 BCP: 3 weeks and developed a DVT hormones: none Past surgical history: 1. Right mastectomy 2. Cholecystectomy Medical history: 1. Asthma Social history: Smoke: Negative Alcohol: Negative Drugs: Negative Review of systems: HEENT: tinnitus bilateral Lungs: Negative heart: Negative GI: Negative : Negative Hematologic: none Psychologic: Negative Neurologic: Negative Objective - Vital Signs Vital signs: Vital Signs Temp 97.9 F 04/07/24 10:59 Pulse 101 H 04/07/24 10:59 Resp 16 04/07/24 10:59 BP 145/68 04/07/24 10:59 Pulse Ox 96 04/07/24 10:59 FiO2 Intake & Output 04/06/24 04/07/24 04/07/24 18:59 06:59 18:59 Weight 52.617 kg - Constitutional General appearance: Present: cooperative - EENT Eyes: Present: EOMI ENT: Present: hearing grossly normal - Neck Neck: Present: normal ROM - Respiratory Respiratory: bilateral: CTA - Cardiovascular Rhythm: regular Heart sounds: normal: S1, S2 - Integumentary Integumentary: Present: normal turgor - Musculoskeletal Musculoskeletal: Present: gait normal - Psychiatric Psychiatric: Present: A&O x's 3, appropriate affect, intact judgment & insight - Additional findings Additional findings: Breast Exam: BRA: 36B inspection: Right mastectomy, left breast grade 3 ptosis Palpation: Right chest wall: No evidence of recurrent disease Right axilla: No adenopathy of concern Left breast: Multiple positional exam no dominant masses or nodules of concern Left axilla: No adenopathy of concern Assessment and Plan Assessment: Impression: status post right breast mastectomy 2003 Repeat left breast mammogram [id number] BIRAD 2 Plan: Left breast mammogram in 1 year with repeat examination at that time patient will try to get records about her right breast cancer
== END ==
LOC: WWCWWP 10:43
PROVIDERS: ATTEND Surgery
DX: Z90.11 Acquired absence of right breast and nipple (principal); Z92.21 Personal history of antineoplastic chemotherapy; Z85.3 Personal history of malignant neoplasm of breast; Z88.8 Allergy status to other drugs, medicaments and biological substances; Z91.09 Other allergy status, other than to drugs and biological substances